=== PATIENT | male | born 1965 | race Caucasian/White ===

== ENCOUNTER 2021-01-25 08:41 | Day surgery (SDC) | payer OTHER ==
[2021-01-23 11:07] VITALS: BMI 33.1
[~2021-01-25 08:41] MED LIST: LACTATED RINGERS 1,000 ML IV SCH; LIDOCAINE 1% (10MG/ML) FOR IV START INTRADERMA PRN
[2021-01-25 09:22] VITALS: TEMP 98.7
[2021-01-25] MEDS ORDERED: LACTATED RINGERS 1,000 ML IV ONE ×2 (09:42)
[2021-01-25] MEDS ORDERED: PROPOFOL 10 MG/ML 20 ML VIAL IV ONE (10:04)
--- NOTE | 2021-01-25 10:16 | P.GSHP ---
History of Present Illness H&P Date: 01/25/21 Chief Complaint: Screening colonoscopy This a 55-year-old male presents today for screening colonoscopy. Patient denies any significant GI complaints. Past Medical History Past Medical History: Hypertension History of Any Multi-Drug Resistant Organisms: None Reported Past Surgical History: Orthopedic Surgery Additional Past Surgical History / Comment(s): rt rotator cuff. dislocated and fx lt ankle with titanium plate and 14 screws Past Anesthesia/Blood Transfusion Reactions: No Reported Reaction Smoking Status: Former smoker Medications and Allergies Home Medications Medication Instructions Recorded Confirmed Type Multivitamins, Thera [Multivitamin 1 tab PO DAILY 01/23/21 01/25/21 History (formulary)] lisinopriL [Zestril] 2.5 mg PO DAILY 01/23/21 01/25/21 History Allergies Allergy/AdvReac Type Severity Reaction Status Date / Time No Known Allergies Allergy Verified 01/23/21 11:01 Surgical - Exam Vital Signs Temp Pulse Resp BP Pulse Ox 98.7 F 78 16 163/96 98 01/25/21 09:20 01/25/21 09:20 01/25/21 09:20 01/25/21 09:20 01/25/21 09:20 - General well developed, well nourished, no distress - Eyes PERRL - ENT normal pinna - Neck no masses - Respiratory normal expansion - Cardiovascular Rhythm: regular - Abdomen Abdomen: soft, non tender Assessment and Plan Assessment: We'll perform screening colonoscopy.
--- NOTE | 2021-01-25 10:17 | P.OP ---
Date of Procedure: 01/25/21 Preoperative Diagnosis: Screening colonoscopy Postoperative Diagnosis: Diverticulosis Procedure(s) Performed: Colonoscopy Anesthesia: MAC Surgeon: Olman Bates Pathology: none sent Condition: stable Disposition: PACU Description of Procedure: The patient's placed on the endoscopy table in the lateral position. He received IV sedation. Digital rectal exam was performed which revealed no abnormality. The colonoscope was then placed patient anus passed throughout the entire colon. The ileocecal valve was visualized. The cecum, ascending and transverse colon normal. In the descending; there is extensive diverticular changes. There is no evidence of diverticulitis. The scope was brought back the rectum and this appeared normal. Scope withdrawn for patient.
[2021-01-25 10:36] VITALS: BP 124/82; PULSE 71; RESP 18
== END 2021-01-25 10:52 | disposition home or self-care (01) ==
LOC: ORWHC2ENDO 08:41
PROVIDERS: ATTEND Surgery
DX: Z12.11 Encounter for screening for malignant neoplasm of colon (principal); K57.30 Diverticulosis of large intestine without perforation or abscess without bleeding; I10 Essential (primary) hypertension; Z87.891 Personal history of nicotine dependence; Z98.890 Other specified postprocedural states; Z79.899 Other long term (current) drug therapy
CPT/HCPCS: J2704; G0121

== ENCOUNTER 2021-12-19 12:33 | Inpatient (IN) | payer BC, OTHER ==
[2021-12-19] MEDS ORDERED: HEPARIN SODIUM 1,000 UN/ML (10ML VL) IV ONE (13:01)
[2021-12-19] MEDS ORDERED: SODIUM CHLORIDE 0.9% 1,000 ML IV STA (13:01)
[2021-12-19] MEDS ORDERED: DILTIAZEM DRIP BOLUS FROM BAG 1 MG SOLN IV ONE (13:01)
[2021-12-19] MEDS ORDERED: HEPARIN SOD,PORK IN 0.45% NACL 25,000 UNIT in 0.45% NACL 1 250ML.BAG IV SCH (13:15)
[2021-12-19 13:28] LABS: Partial Thromboplastin Time 24.5 sec (22.0-30.0); Prothrombin Time 10.7 sec (9.0-12.0)
[2021-12-19 13:29] LABS: ALT 35 U/L (4-49); AST 38 U/L (17-59); African American GFR (CKD) >90 (>60 ml/min/1.73 sqM); Albumin 4.6 g/dL (3.5-5.0); Alkaline Phosphatase 66 U/L (38-126); Anion Gap 15 mmol/L; Blood Urea Nitrogen 16 mg/dL (9-20); Calcium 9.3 mg/dL (8.4-10.2); Carbon Dioxide 21 mmol/L (22-30); Chloride 102 mmol/L (98-107); Glucose 87 mg/dL (74-99); Magnesium 1.9 mg/dL (1.6-2.3); Non-African American GFR(CKD) >90 (>60 ml/min/1.73 sqM); Potassium 4.3 mmol/L (3.5-5.1); Sodium 138 mmol/L (137-145); Total Bilirubin 0.6 mg/dL (0.2-1.3)
[2021-12-19] MEDS: DILTIAZEM 125 MG in SODIUM CHLORIDE 0.9% 100 ML IV SCH (13:34)
--- NOTE | 2021-12-19 13:41 | ED ---
Arrhythmia/Palpitations HPI - General Chief Complaint: Arrhythmia/Palpitations Stated Complaint: abnormal EKG Time Seen by Provider: 12/19/21 12:50 Source: patient, RN notes reviewed Mode of arrival: ambulatory Limitations: no limitations - History of Present Illness Initial Comments: 56-year-old male with a benign past medical history who states he was sent here from his doctor's office today he's been having for the past several months decreased exercise tolerance with shortness of breath with exertion. He also had a cough with some phlegm today which is why he went to [employer] he had a rapid heart rate and was sent here for evaluation. He has no prior history of atrial flutter or fibrillation. No history of any cardiac disease that he is aware of. He does have a history of hypertension but no other complaints of any other problems at this time MD Complaint: rapid heart beat - Related Data Home Medications Medication Instructions Recorded Confirmed Multivitamins, Thera [Multivitamin 1 tab PO DAILY 01/23/21 01/25/21 (formulary)] lisinopriL [Zestril] 2.5 mg PO DAILY 01/23/21 01/25/21 Allergies Allergy/AdvReac Type Severity Reaction Status Date / Time No Known Allergies Allergy Verified 12/19/21 12:41 Review of Systems ROS Statement: Those systems with pertinent positive or pertinent negative responses have been documented in the HPI. ROS Other: All systems not noted in ROS Statement are negative. Past Medical History Past Medical History: Hypertension History of Any Multi-Drug Resistant Organisms: None Reported Past Surgical History: Orthopedic Surgery Additional Past Surgical History / Comment(s): rt rotator cuff. dislocated and fx lt ankle with titanium plate and 14 screws Past Anesthesia/Blood Transfusion Reactions: No Reported Reaction Past Psychological History: No Psychological Hx Reported Smoking Status: Former smoker Past Alcohol Use History: Occasional Past Drug Use History: None Reported General Exam - General Exam Comments Initial Comments: This is a well-developed well-nourished awake alert oriented 4 male Limitations: no limitations General appearance: alert, in no apparent distress Head exam: Present: atraumatic, normocephalic, normal inspection Eye exam: Present: normal appearance, PERRL, EOMI. Absent: scleral icterus, conjunctival injection, periorbital swelling ENT exam: Present: normal exam, mucous membranes moist Neck exam: Present: normal inspection, full ROM, other (No stridor JVD or bruits). Absent: tenderness, meningismus, lymphadenopathy Respiratory exam: Present: normal lung sounds bilaterally. Absent: respiratory distress, wheezes, rales, rhonchi, stridor Cardiovascular Exam: Present: tachycardia. Absent: systolic murmur, diastolic murmur, rubs, gallop, clicks GI/Abdominal exam: Present: soft, normal bowel sounds. Absent: distended, tenderness, guarding, rebound, rigid Extremities exam: Present: normal inspection, full ROM, normal capillary refill. Absent: tenderness, pedal edema, joint swelling, calf tenderness Back exam: Present: normal inspection Neurological exam: Present: alert, oriented X3, CN II-XII intact Psychiatric exam: Present: normal affect, normal mood Skin exam: Present: warm, dry, intact, normal color. Absent: rash Course Vital Signs 12/19/21 12:37 Temperature 98 F Pulse Rate 147 H Respiratory 20 Rate Blood Pressure 162/106 O2 Sat by Pulse 98 Oximetry - Reevaluation(s) Reevaluation #1: 12/19/21 15:05 Patient did get some initial response with Cardizem but then the heart rate started creeping upward. Patient will be re-bolused and increased Cardizem rate per hour. EKG Findings - EKG Results: EKG: interpreted by YAYA (EKG shows a atrial flutter rate of 145 QRS duration 88 QT/QTC 153/[address] configuration.) Medical Decision Making - Medical Decision Making I did discuss findings with the patient also with Dr. wells patient be admitted with cardiology consultation new-onset atrial flutter - Lab Data Result diagrams: 12/19/21 12:45 12/19/21 12:45 Lab Results 12/19/21 12/19/21 12/19/21 Range/Units 12:45 12:45 12:45 WBC 7.8 (3.8-10.6) k/uL RBC 5.22 (4.30-5.90) m/uL Hgb 16.4 (13.0-17.5) gm/dL Hct 49.9 (39.0-53.0) % MCV 95.5 (80.0-100.0) fL MCH 31.4 (25.0-35.0) pg MCHC 32.9 (31.0-37.0) g/dL RDW 12.3 (11.5-15.5) % Plt Count 205 (150-450) k/uL MPV 8.8 Neutrophils % (Manual) 67 % Lymphocytes % (Manual) 18 % Monocytes % (Manual) 15 % Neutrophils # (Manual) 5.23 (1.3-7.7) k/uL Lymphocytes # (Manual) 1.40 (1.0-4.8) k/uL Monocytes # (Manual) 1.17 H (0-1.0) k/uL Nucleated RBCs 0 (0-0) /100 WBC Manual Slide Review Performed Anisocytosis (manual) Present PT 10.7 (9.0-12.0) sec INR 1.0 (<1.2) APTT 24.5 (22.0-30.0) sec Sodium 138 (137-145) mmol/L Potassium 4.3 (3.5-5.1) mmol/L Chloride 102 (98-107) mmol/L Carbon Dioxide 21 L (22-30) mmol/L Anion Gap 15 mmol/L BUN 16 (9-20) mg/dL Creatinine 0.91 (0.66-1.25) mg/dL Est GFR (CKD-EPI)AfAm >90 (>60 ml/min/1.73 sqM) Est GFR (CKD-EPI)NonAf >90 (>60 ml/min/1.73 sqM) Glucose 87 (74-99) mg/dL Calcium 9.3 (8.4-10.2) mg/dL Magnesium 1.9 (1.6-2.3) mg/dL Total Bilirubin 0.6 (0.2-1.3) mg/dL AST 38 (17-59) U/L ALT 35 (4-49) U/L Alkaline Phosphatase 66 (38-126) U/L Troponin I (0.000-0.034) ng/mL Total Protein 8.0 (6.3-8.2) g/dL Albumin 4.6 (3.5-5.0) g/dL TSH 1.530 (0.465-4.680) mIU/L 12/19/21 Range/Units 12:45 WBC (3.8-10.6) k/uL RBC (4.30-5.90) m/uL Hgb (13.0-17.5) gm/dL Hct (39.0-53.0) % MCV (80.0-100.0) fL MCH (25.0-35.0) pg MCHC (31.0-37.0) g/dL RDW (11.5-15.5) % Plt Count (150-450) k/uL MPV Neutrophils % (Manual) % Lymphocytes % (Manual) % Monocytes % (Manual) % Neutrophils # (Manual) (1.3-7.7) k/uL Lymphocytes # (Manual) (1.0-4.8) k/uL Monocytes # (Manual) (0-1.0) k/uL Nucleated RBCs (0-0) /100 WBC Manual Slide Review Anisocytosis (manual) PT (9.0-12.0) sec INR (<1.2) APTT (22.0-30.0) sec Sodium (137-145) mmol/L Potassium (3.5-5.1) mmol/L Chloride (98-107) mmol/L Carbon Dioxide (22-30) mmol/L Anion Gap mmol/L BUN (9-20) mg/dL Creatinine (0.66-1.25) mg/dL Est GFR (CKD-EPI)AfAm (>60 ml/min/1.73 sqM) Est GFR (CKD-EPI)NonAf (>60 ml/min/1.73 sqM) Glucose (74-99) mg/dL Calcium (8.4-10.2) mg/dL Magnesium (1.6-2.3) mg/dL Total Bilirubin (0.2-1.3) mg/dL AST (17-59) U/L ALT (4-49) U/L Alkaline Phosphatase (38-126) U/L Troponin I <0.012 (0.000-0.034) ng/mL Total Protein (6.3-8.2) g/dL Albumin (3.5-5.0) g/dL TSH (0.465-4.680) mIU/L - Radiology Data Radiology results: report reviewed (Imaging reviewed as well as reports.), image reviewed Critical Care Time Critical Care Time: Yes Total Critical Care Time: 31 Critical Care Time: Critical care time includes initial history physical labs x-rays reevaluation with the patient discussed with the main physician admission orders neck mentation the above Disposition Clinical Impression: Atrial flutter, Tachycardia Disposition: ADMITTED IP TO THIS [facility] Condition: Stable Referrals: Cecily Shelton MD [Primary Care Provider] - 1-2 days Decision Date: 12/19/21 Decision Time: 15:06
[2021-12-19 13:44] LABS: HCT 49.9 % (39.0-53.0); HGB 16.4 gm/dL (13.0-17.5); MCH 31.4 pg (25.0-35.0); MCHC 32.9 g/dL (31.0-37.0); MCV 95.5 fL (80.0-100.0); Mean Platelet Volume 8.8; Platelet Count 205 k/uL (150-450); RBC 5.22 m/uL (4.30-5.90); RDW 12.3 % (11.5-15.5); WBC 7.8 k/uL (3.8-10.6)
--- NOTE | 2021-12-19 14:24 | XR ---
EXAMINATION TYPE: XR chest 2V DATE OF EXAM: 12/19/2021 COMPARISON: NONE HISTORY: Shortness of breath TECHNIQUE: Frontal and lateral views of the chest are obtained. FINDINGS: Scattered senescent parenchymal changes noted. Hyperinflation compatible with COPD. No evidence for infiltrate. No evidence for atelectasis. Heart size is stable. Mediastinal structures are stable and grossly unremarkable. No evidence for hilar prominence. Degenerative changes dorsal spine. IMPRESSION: 1. No evidence for acute pulmonary disease.
[2021-12-19 15:01] LABS: Anisocytosis (M) Present; Monocytes # (M) 1.17 k/uL (0-1.0); Neutrophils # (M) 5.23 k/uL (1.3-7.7); Neutrophils % (M) 67 %; Nucleated Red Blood Cells 0 /100 WBC (0-0); Total Cells Counted 100
[2021-12-19] MEDS ORDERED: NALOXONE 0.4 MG/ML 1 ML VIAL IV PRN (15:07)
[2021-12-19] MEDS ORDERED: HEPARIN SODIUM 1,000 UN/ML (10ML VL) IV PRN (20:29)
--- NOTE | 2021-12-19 21:21 | P.HPIM ---
History of Present Illness This is a pleasant 56 years old male with past medical history of hypertension. Patient presents because of shortness of breath and dyspnea, patient was getting up in the middle of night feeling short of breath. Especially over the last 2 nights. Also has been complaining of from cough and yellow phlegm but no chest pain. However patient feels generally weak. His PCP is Richard Todd He denies smoking, alcohol occasionally. No illicit drugs. He denies vomiting diarrhea or abdominal pain, no dysuria, no headache or dizziness or weakness or numbness Review of Systems Review of systems CONSTITUTIONAL: No fever, no malaise, no fatigue. HEENT: No recent visual problems or hearing problems. Denied any sore throat. CARDIOVASCULAR: No orthopnea, PND, no palpitations, no syncope. PULMONARY: No shortness of breath, no cough, no hemoptysis. GASTROINTESTINAL: No diarrhea, no nausea, no vomiting, no abdominal pain. Normoactive bowel sounds. NEUROLOGICAL: No headaches, no weakness, no numbness. HEMATOLOGICAL: Denies any bleeding or petechiae. GENITOURINARY: Denies any burning micturition, frequency, or urgency. MUSCULOSKELETAL/RHEUMATOLOGICAL: Denies any joint pain, swelling, or any muscle pain. ENDOCRINE: Denies any polyuria or polydipsia. Past Medical History Past Medical History: Hypertension History of Any Multi-Drug Resistant Organisms: None Reported Past Surgical History: Orthopedic Surgery Additional Past Surgical History / Comment(s): rt rotator cuff. dislocated and fx lt ankle with titanium plate and 14 screws Past Anesthesia/Blood Transfusion Reactions: No Reported Reaction Past Psychological History: No Psychological Hx Reported Smoking Status: Former smoker Past Alcohol Use History: Occasional Past Drug Use History: None Reported Medications and Allergies Home Medications Medication Instructions Recorded Confirmed Type lisinopriL [Zestril] 2.5 mg PO DAILY 01/23/21 12/19/21 History tadalafiL 5 mg PO DAILY PRN 12/19/21 12/19/21 History Allergies Allergy/AdvReac Type Severity Reaction Status Date / Time No Known Allergies Allergy Verified 12/19/21 15:12 Physical Exam Vitals: Vital Signs Temp Pulse Resp BP Pulse Ox 12/19/21 16:13 147 H 18 12/19/21 12:37 98 F 147 H 20 162/106 98 Intake and Output 12/19/21 12/19/21 12/19/21 06:59 14:59 22:59 Intake Total 7.75 Balance 7.75 Intake: Intake, IV Titration 7.75 Amount Diltiazem 125 mg In 7.75 Sodium Chloride 0.9% 100 ml @ 5 MG/HR 5 mls/hr IV .Q24H [facility] Rx#:[id number] Other: Weight 124.738 kg GENERAL: The patient is alert and oriented x3, not in any acute distress. Well developed, well nourished. HEENT: Pupils are round and equally reacting to light. EOMI. No scleral icterus. No conjunctival pallor. Normocephalic, atraumatic. No pharyngeal erythema. No thyromegaly. CARDIOVASCULAR: S1 and S2 present. No murmurs, rubs, or gallops. PULMONARY: Chest is clear to auscultation, no wheezing or crackles. ABDOMEN: Soft, nontender, nondistended, normoactive bowel sounds. No palpable organomegaly. MUSCULOSKELETAL: No joint swelling or deformity. EXTREMITIES: No cyanosis, clubbing, or pedal edema. NEUROLOGICAL: Gross neurological examination did not reveal any focal deficits. SKIN: No rashes. no petechiae. Results CBC & Chem 7: 12/19/21 12:45 12/19/21 12:45 Labs: Abnormal Lab Results - Last 24 Hours (Table) 12/19/21 12/19/21 Range/Units 12:45 12:45 Monocytes # (Manual) 1.17 H (0-1.0) k/uL Carbon Dioxide 21 L (22-30) mmol/L Assessment and Plan Assessment: Atrial flutter with RVR, new onset Hypertension Generalized weakness Plan: This is a pleasant 56 years old male who presents with a flutter Continue with heparin drip Continue with Cardizem drip Cardiology consult Labs and medication were reviewed.. Continue same treatment. Continue with symptomatic treatment. Resume home medication. Monitor lytes and vitals. DVT and GI prophylaxis. Further recommendations as per clinical course of the patient DVT prophylaxis: heparin GI Prophylaxis: Pepcid
[2021-12-19] MEDS ORDERED: METOPROLOL TARTRATE 25 MG TAB PO SCH (21:45)
[2021-12-20] MEDS: DILTIAZEM 125 MG in SODIUM CHLORIDE 0.9% 100 ML IV SCH (04:45)
--- NOTE | 2021-12-20 08:24 | P.CRDCN ---
History of Present Illness Consult date: 12/20/21 History of present illness: History of Present Illness: The patient is a 56-year-old male with a history of hypertension who for the last month has been having episodes of fatigue and dyspnea on and off, not associated with any other symptoms, he was seen by his primary care physician yesterday and noted to be tachycardic and in atrial flutter. The patient does not feel the palpitations, he has no dizziness or syncope. He denies any chest discomfort. He has no prior history of cardiac disease. He does exercise on a regular basis and goes to the gym and has felt a lack of energy at times. He has no recent fever or cough. He has no PND, orthopnea or peripheral edema. He has a history of snoring and apnea but has not been diagnosed with obstructive sleep apnea. He stopped smoking over 10 years ago, he drinks about 2 beers a day. He has a history of hypertension, nondiabetic, his lipid profile is not available. His CHADS2-VASC2 score is 1. He has a cough, dry, probably CHENTE inhibitor cough Medications: Lisinopril 2.5 milligrams daily Review of Systems: Respiratory: [No history of asthma, he has a dry cough.] GI: [No nausea or vomiting . No history of peptic ulcer disease. No recent GI bleed.] : [No hematuria or dysuria.] Nervous System: [No stroke or seizure.] Physical Examination: [56-year-old male, alert oriented no apparent distress] ,Blood pressure[ 106/60 ], Heart rate [ in the 100s] Head: [Normocephalic.] Eyes: [Sclerae nonicteric.] Neck: [Good carotid upstroke, no bruit, no jugular venous distention.] Lungs: [Clear to auscultation.] Heart: [Irregular rate and rhythm, S1-S2, no S3, no rub. No murmur.] Abdomen: [Soft nontender, positive bowel sounds no organomegaly.] Extremities: [No edema, intact distal pulses.] Labs: [Troponin less than 0.012, hemoglobin 16.4, potassium 4.3, BUN 16, creatinine 0.91, TSH 1.53] EKG: [ Atrial flutter with rapid ventricle response and nonspecific ST-T wave changes] Impression: 1. [ Typical atrial flutter, unknown duration. It is unclear if the patient was having paroxysmal atrial flutter associated with the change in his symptoms, his score is 1] 2. [ History of hypertension] 3. [ Probable obstructive sleep apnea] 4. [ Cough probably CHENTE inhibitor cough] Plan: 1. [ Stop IV Cardizem] 2. [ Increase beta carlos] 3. [ Start oral anticoagulation] 4. [ Obtain an echocardiogram with Doppler] 5. [ The patient will require a sleep study as an outpatient, I discussed with him as well the importance of alcohol cessation 6. If he persists in atrial flutter with rapid ventricle response consider JULIETTE guided cardioversion, the risks and the complications were discussed with the patient 7. Thank you for this consult we will follow with you] Past Medical History Past Medical History: Hypertension History of Any Multi-Drug Resistant Organisms: None Reported Past Surgical History: Orthopedic Surgery Additional Past Surgical History / Comment(s): rt rotator cuff. dislocated and fx lt ankle with titanium plate and 14 screws Past Anesthesia/Blood Transfusion Reactions: No Reported Reaction Past Psychological History: No Psychological Hx Reported Smoking Status: Former smoker Past Alcohol Use History: Occasional Past Drug Use History: None Reported Medications and Allergies Home Medications Medication Instructions Recorded Confirmed Type lisinopriL [Zestril] 2.5 mg PO DAILY 01/23/21 12/19/21 History tadalafiL 5 mg PO DAILY PRN 12/19/21 12/19/21 History Allergies Allergy/AdvReac Type Severity Reaction Status Date / Time No Known Allergies Allergy Verified 12/19/21 15:12 Physical Exam Vitals: Vital Signs Temp Pulse Pulse Pulse Resp BP BP 12/20/21 06:57 100 106/63 12/20/21 03:30 98.1 F 92 18 98/66 12/20/21 00:35 98.7 F 136 H 16 100/71 12/19/21 22:12 141 H 114/72 12/19/21 20:56 144 H 132/83 12/19/21 19:45 97.8 F 144 H 18 129/85 12/19/21 18:30 97.8 F 147 H 18 130/87 12/19/21 16:43 149 H 18 117/77 12/19/21 16:13 147 H 18 12/19/21 16:00 97.9 F 124 H 16 133/70 12/19/21 15:59 98 F 124 H 15 130/87 12/19/21 12:37 98 F 147 H 20 162/106 Pulse Ox 12/20/21 06:57 12/20/21 03:30 94 L 12/20/21 00:35 95 12/19/21 22:12 12/19/21 20:56 12/19/21 19:45 97 12/19/21 18:30 96 12/19/21 16:43 94 L 12/19/21 16:13 12/19/21 16:00 94 L 12/19/21 15:59 96 12/19/21 12:37 98 Intake and Output 12/19/21 12/20/21 12/20/21 22:59 06:59 14:59 Intake Total 376.583 158.731 Balance 376.583 158.731 Intake: Intake, IV Titration 146.583 158.731 Amount Diltiazem 125 mg In 73.75 51.25 Sodium Chloride 0.9% 100 ml @ 5 MG/HR 5 mls/hr IV .Q24H [facility] Rx#:[id number] Heparin Sod,Pork in 0.45% 72.833 107.481 NaCl 25,000 unit In 0.45 % NaCl 1 250ml.bag @ 8. 0168 UNITS/KG/HR 10 mls/ hr IV .Q24H [facility] Rx#: [id number] Oral 230 Other: Voiding Method Toilet Toilet # Voids 3 Weight 124.738 kg Results 12/19/21 12:45 12/19/21 12:45 Cardiac Enzymes 12/19/21 12/19/21 12/19/21 Range/Units 12:45 12:45 18:22 AST 38 (17-59) U/L Troponin I <0.012 <0.012 (0.000-0.034) ng/mL 12/19/21 Range/Units 20:29 AST (17-59) U/L Troponin I <0.012 (0.000-0.034) ng/mL Coagulation 12/19/21 12/19/21 12/20/21 Range/Units 12:45 19:05 03:49 PT 10.7 (9.0-12.0) sec APTT 24.5 28.2 68.7 H (22.0-30.0) sec CBC 12/19/21 Range/Units 12:45 WBC 7.8 (3.8-10.6) k/uL RBC 5.22 (4.30-5.90) m/uL Hgb 16.4 (13.0-17.5) gm/dL Hct 49.9 (39.0-53.0) % Plt Count 205 (150-450) k/uL Comprehensive Metabolic Panel 12/19/21 Range/Units 12:45 Sodium 138 (137-145) mmol/L Potassium 4.3 (3.5-5.1) mmol/L Chloride 102 (98-107) mmol/L Carbon Dioxide 21 L (22-30) mmol/L BUN 16 (9-20) mg/dL Creatinine 0.91 (0.66-1.25) mg/dL Glucose 87 (74-99) mg/dL Calcium 9.3 (8.4-10.2) mg/dL AST 38 (17-59) U/L ALT 35 (4-49) U/L Alkaline Phosphatase 66 (38-126) U/L Total Protein 8.0 (6.3-8.2) g/dL Albumin 4.6 (3.5-5.0) g/dL Current Medications Generic Name Dose Route Start Last Admin Trade Name Freq PRN Reason Stop Dose Admin Naloxone HCl 0.2 mg 12/19/21 15:07 Naloxone 0.4 Mg/Ml 1 Ml Vial IV Q2M PRN Opioid Reversal Intake and Output 12/19/21 12/20/21 12/20/21 22:59 06:59 14:59 Intake Total 376.583 158.731 Balance 376.583 158.731 Intake: Intake, IV Titration 146.583 158.731 Amount Diltiazem 125 mg In 73.75 51.25 Sodium Chloride 0.9% 100 ml @ 5 MG/HR 5 mls/hr IV .Q24H [facility] Rx#:[id number] Heparin Sod,Pork in 0.45% 72.833 107.481 NaCl 25,000 unit In 0.45 % NaCl 1 250ml.bag @ 8. 0168 UNITS/KG/HR 10 mls/ hr IV .Q24H [facility] Rx#: [id number] Oral 230 Other: Voiding Method Toilet Toilet # Voids 3 Weight 124.738 kg 12/19/21 12:45 12/19/21 12:45
[2021-12-20] MEDS: APIXABAN 5 MG TAB PO SCH ×2 (09:14→22:32)
[2021-12-20] MEDS: METOPROLOL TARTRATE 50 MG TAB PO SCH ×2 (09:15→22:32)
--- NOTE | 2021-12-20 12:22 | P.PN ---
Subjective This is a pleasant 56 years old male with past medical history of hypertension. Patient presents because of shortness of breath and dyspnea, patient was getting up in the middle of night feeling short of breath. Especially over the last 2 nights. Also has been complaining of from cough and yellow phlegm but no chest pain. However patient feels generally weak. His PCP is Richard Todd He denies smoking, alcohol occasionally. No illicit drugs. He denies vomiting diarrhea or abdominal pain, no dysuria, no headache or dizziness or weakness or numbness 12/20/2021 Patient's symptoms improved, no chest pain or dyspnea. His generalized weakness is also improving. He denies any GI or urinary complaints, no headache or weakness or numbness or d izziness. His heart rate is been controlled with metoprolol 50 mg twice a day and amiodarone 400 mg twice a day per cardiology team also he was started on liquids 5 mg, discussed with the staff to find the co-pay. His heart rate is now normal. Risk and benefits of anticoagulation explained for the patient extensively and he verbalized understanding and acceptance. Possible discharge in 24 hours if he keeps improving and stable Objective - Vital Signs Vital signs: Vital Signs Temp 98.2 F 12/20/21 09:00 Pulse 64 12/20/21 09:00 Resp 16 12/20/21 09:00 BP 118/72 12/20/21 09:00 Pulse Ox 97 12/20/21 09:00 FiO2 Intake & Output 12/19/21 12/20/21 12/20/21 18:59 06:59 18:59 Intake Total 237.75 297.564 Balance 237.75 297.564 Weight 124.738 kg Intake: Intake, IV Titration 7.75 297.564 Amount Diltiazem 125 mg In 7.75 117.25 Sodium Chloride 0.9% 100 ml @ 5 MG/HR 5 mls/hr IV .Q24H [facility] Rx#:[id number] Heparin Sod,Pork in 0.45% 180.314 NaCl 25,000 unit In 0.45 % NaCl 1 250ml.bag @ 8. 0168 UNITS/KG/HR 10 mls/ hr IV .Q24H [facility] Rx#: [id number] Oral 230 Other: Voiding Method Toilet # Voids 3 - Exam GENERAL: The patient is alert and oriented x3, not in any acute distress. Well developed, well nourished. HEENT: Pupils are round and equally reacting to light. EOMI. No scleral icterus. No conjunctival pallor. Normocephalic, atraumatic. No pharyngeal erythema. No thyromegaly. CARDIOVASCULAR: S1 and S2 present. No murmurs, rubs, or gallops. PULMONARY: Chest is clear to auscultation, no wheezing or crackles. ABDOMEN: Soft, nontender, nondistended, normoactive bowel sounds. No palpable organomegaly. MUSCULOSKELETAL: No joint swelling or deformity. EXTREMITIES: No cyanosis, clubbing, or pedal edema. NEUROLOGICAL: Gross neurological examination did not reveal any focal deficits. SKIN: No rashes. no petechiae. - Labs CBC & Chem 7: 12/19/21 12:45 12/19/21 12:45 Labs: Abnormal Lab Results - Last 24 Hours (Table) 12/19/21 12/19/21 12/20/21 Range/Units 12:45 12:45 03:49 Monocytes # (Manual) 1.17 H (0-1.0) k/uL APTT 68.7 H (22.0-30.0) sec Carbon Dioxide 21 L (22-30) mmol/L Assessment and Plan Assessment: Atrial flutter with RVR, new onset Hypertension Generalized weakness Plan: This is a pleasant 56 years old male who presents with a atrial fibrillation and RVR Continue with the Eliquis, find co-pay Continue with Dipti rousseau Cardiology consult is appreciated Labs and medication were reviewed.. Continue same treatment. Continue with symptomatic treatment. Resume home medication. Monitor lytes and vitals. DVT and GI prophylaxis. Further recommendations as per clinical course of the patient DVT prophylaxis: Eliquis, GI Prophylaxis: Pepcid
[2021-12-20] MEDS: SPIRONOLACTONE 25 MG TAB PO SCH (12:38)
[2021-12-20] MEDS: AMIODARONE 200 MG TAB PO SCH ×2 (12:39→22:31)
[2021-12-20 13:07] LABS: African American GFR (CKD) >90 (>60 ml/min/1.73 sqM); Anion Gap 9 mmol/L; Blood Urea Nitrogen 13 mg/dL (9-20); Calcium 9.3 mg/dL (8.4-10.2); Carbon Dioxide 22 mmol/L (22-30); Chloride 105 mmol/L (98-107); Glucose 105 mg/dL (74-99); Magnesium 1.8 mg/dL (1.6-2.3); Non-African American GFR(CKD) >90 (>60 ml/min/1.73 sqM); Potassium 4.7 mmol/L (3.5-5.1); Sodium 136 mmol/L (137-145)
[2021-12-20 13:10] LABS: Basophils # (A) 0.1 k/uL (0-0.2); Basophils % (A) 1 %; Eosinophils # (A) 0.2 k/uL (0-0.7); Eosinophils % (A) 3 %; HCT 49.2 % (39.0-53.0); HGB 16.4 gm/dL (13.0-17.5); Lymphocytes # (A) 2.4 k/uL (1.0-4.8); Lymphocytes % (A) 39 %; MCH 32.6 pg (25.0-35.0); MCHC 33.4 g/dL (31.0-37.0); MCV 97.8 fL (80.0-100.0); Mean Platelet Volume 8.6; Monocytes # (A) 0.4 k/uL (0-1.0); Monocytes % (A) 7 %; Neutrophils # (A) 2.9 k/uL (1.3-7.7); Neutrophils % (A) 47 %; Platelet Count 247 k/uL (150-450); RBC 5.03 m/uL (4.30-5.90); RDW 12.5 % (11.5-15.5); WBC 6.1 k/uL (3.8-10.6)
[2021-12-20] MEDS ORDERED: METOPROLOL TARTRATE 25 MG TAB PO STA (14:54)
--- NOTE | 2021-12-20 17:23 | CA ---
Transthoracic Echo Report Name: Reilly Craig Age: 56 Gender: M : 1965 Exam Date: 12/20/2021 09:46 Exam Location: [facility] Ht (in): 62 Wt (lb): 275 Ordering Physician: Keila Morris MD ([id number]) Attending/Referring Phys: Rn On Site Bere Lujan RDCS Procedure CPT: Indications: atrial flutter Cardiac Hx: Technical Quality: Technically difficult study Contrast 1: Lumason Total Dose (mL): 3 Contrast 2: Total Dose (mL): MEASUREMENTS (Male / Female) Normal Values 2D ECHO LV Diastolic Diameter PLAX 6.0 cm 4.2 - 5.9 / 3.9 - 5.3 cm LV Systolic Diameter PLAX 5.7 cm IVS Diastolic Thickness 1.3 cm 0.6 - 1.0 / 0.6 - 0.9 cm LVPW Diastolic Thickness 2.2 cm 0.6 - 1.0 / 0.6 - 0.9 cm LV Relative Wall Thickness 0.6 RV Internal Dim ED PLAX 3.6 cm LA Systolic Diameter LX 4.5 cm 3.0 - 4.0 / 2.7 - 3.8 cm LA Volume 72.6 cm??? 18 - 58 / 22 - 52 cm??? M-MODE Aortic Root Diameter MM 3.7 cm LA Systolic Diameter MM 4.1 cm LA Ao Ratio MM 1.1 MV E Point Septal Separation 0.9 cm AV Cusp Separation MM 2.3 cm DOPPLER TR Peak Velocity 265.2 cm/s TR Peak Gradient 28.1 mmHg Right Ventricular Systolic Press 31.7 mmHg FINDINGS Left Ventricle Left ventricular ejection fraction is estimated at 30-35 %. Moderately reduced global left ventricular systolic function. Right Ventricle Normal right ventricular size and function. Right ventricular systolic pressure within normal limits. Right Atrium Normal right atrial size. Left Atrium Mildly increased left atrial diameter. Moderately increased left atrial volume. Mildly increased left atrial area. Mitral Valve Structurally normal mitral valve. Mild mitral regurgitation. Aortic Valve Trileaflet aortic valve. Tricuspid Valve Structurally normal tricuspid valve. Mild tricuspid regurgitation. Pulmonic Valve Structurally normal pulmonic valve. Pericardium Trace of pericardial effusion. Aorta Normal size aortic root and proximal ascending aorta. CONCLUSIONS Severe LV systolic dysfunction with an ejection fraction of 30-35% Moderate left atrial enlargement Mild mitral regurgitation Previewed by: Dr. Alin Kaur MD (Electronically Signed) Final Date: 20 December 2021 17:23
[2021-12-21] MEDS: METOPROLOL TARTRATE 50 MG TAB PO SCH (08:38)
[2021-12-21] MEDS: SPIRONOLACTONE 25 MG TAB PO SCH (08:38)
[2021-12-21] MEDS: AMIODARONE 200 MG TAB PO SCH ×2 (08:38→20:45)
[2021-12-21] MEDS: APIXABAN 5 MG TAB PO SCH ×2 (08:39→20:45)
[2021-12-21 09:39] LABS: African American GFR (CKD) >90 (>60 ml/min/1.73 sqM); Anion Gap 12 mmol/L; Blood Urea Nitrogen 18 mg/dL (9-20); Calcium 9.5 mg/dL (8.4-10.2); Carbon Dioxide 22 mmol/L (22-30); Chloride 104 mmol/L (98-107); Glucose 110 mg/dL (74-99); Non-African American GFR(CKD) 82 (>60 ml/min/1.73 sqM); Potassium 4.4 mmol/L (3.5-5.1); Sodium 138 mmol/L (137-145)
[2021-12-21] MEDS ORDERED: LACTATED RINGERS 1,000 ML IV ONE ×2 (10:05)
[2021-12-21] MEDS ORDERED: LIDOCAINE 2% INJ 20 MG/ML (2 ML VIAL) ONE (10:08)
[2021-12-21] MEDS ORDERED: PROPOFOL 10 MG/ML 20 ML VIAL IV ONE (10:08)
--- NOTE | 2021-12-21 10:33 | P.PN ---
Subjective Progress Note Date: 12/21/21 PROGRESS NOTE The patient is a 56-year-old male with a known history of hypertension who presented with progressive dyspnea was noted to be in atrial flutter with rapid ventricular rate. Anticoagulation was initiated. His echocardiogram showed severely impaired systolic function and his ventricular rate remains rapid with 2 to one conduction. He's feeling better overall. He denies any chest discomfort, dizziness or palpitations. He denies any nausea. His echocardiogram showed an ejection fraction of 3035% with mild mitral and tricuspid regurgitation Medications: Amiodarone 400 milligrams twice a day, metoprolol 50 mg twice a day,Eliquis 5 mg twice a day, Aldactone 25 mg daily EXAMINATION: Blood pressure 122/102, heart rate 137 LUNGS: Clear to auscultation HEART: Tachycardic Regular rate and rhythm, S1, S2. No S3. systolic murmur at the base ABDOMEN: Soft, nontender, no organomegaly EXTREMETIES: No edema LAB: Potassium 4.4, BUN 18, creatinine 1.03 IMPRESSION: 1. Atrial flutter with rapid ventricular rate, unknown duration 2. Evidence of cardiomyopathy, it is unclear if it is tachycardia-induced cardiomyopathy 3. History of hypertension 4. Probable obstructive sleep apnea PLAN: 1. JULIETTE guided cardioversion 2. Start Entresto 2426 milligrams twice a day 3. If cardioversion is successful changed to metoprolol succinate 4. If stable probable discharge home tomorrow Objective - Vital Signs Vital signs: Vital Signs Temp 98.0 F 12/21/21 07:52 Pulse 137 H 12/21/21 07:52 Resp 18 12/21/21 07:52 BP 122/102 12/21/21 07:52 Pulse Ox 98 12/21/21 07:52 FiO2 Intake & Output 12/20/21 12/21/21 12/21/21 18:59 06:59 18:59 Intake Total 240 0 Balance 240 0 Intake: IV 0 Oral 240 0 Other: Voiding Method Toilet Toilet # Voids 1 2 2 - Labs CBC & Chem 7: 12/20/21 12:07 12/21/21 09:01 Labs: Abnormal Lab Results - Last 24 Hours (Table) 12/20/21 12/21/21 Range/Units 12:07 09:01 Sodium 136 L (137-145) mmol/L Glucose 105 H 110 H (74-99) mg/dL
--- NOTE | 2021-12-21 10:36 | P.PCN ---
Date of Procedure: 12/21/21 Description of Procedure: Indication: Atrial flutter Procedure Description: After explaining the procedure to the patient, it's risk and complications, blood pressure, heart rate and O2 saturation were monitored. The throat was sprayed with Cetacaine. Patient received sedation per anesthesia department. The probe was introduced into the esophagus without difficulty. Images were obtained. Following that, the probe was removed. There was no immediate complication. Findings: Biatrial enlargement was noted, left atrial appendage was normal. Left ventricle size was normal with severe global hypokinesis, ejection fraction is estimated at 25-30%. The aortic valve appears to be normal. The mitral valve was thickened. Tricuspid valve is normal. Descending thoracic aorta appears to be normal. No pericardial effusion was noted. Contrast bubble study revealed no shunting across the intra-atrial septum Doppler: Pulse wave and color Doppler were obtained, moderate mitral and tricuspid regurgitation with no evidence of pulmonary hypertension. No shunting by color Doppler study Conclusion: 1. Biatrial enlargement 2. Normal appearance of the left atrial appendage 3. Severe global hypokinesis of the left ventricle 4. Moderate mitral and tricuspid regurgitation 5. No shunting across the intra-atrial septum Cardioversion: After obtaining JULIETTE and obtaining sedated state synchronize biphasic cardioversion using 150 J was performed with congregational of sinus mechanism, there is no immediate complications.
--- NOTE | 2021-12-21 11:03 | P.PN ---
Subjective This is a pleasant 56 years old male with past medical history of hypertension. Patient presents because of shortness of breath and dyspnea, patient was getting up in the middle of night feeling short of breath. Especially over the last 2 nights. Also has been complaining of from cough and yellow phlegm but no chest pain. However patient feels generally weak. His PCP is Richard Todd He denies smoking, alcohol occasionally. No illicit drugs. He denies vomiting diarrhea or abdominal pain, no dysuria, no headache or dizziness or weakness or numbness 12/20/2021 Patient's symptoms improved, no chest pain or dyspnea. His generalized weakness is also improving. He denies any GI or urinary complaints, no headache or weakness or numbness or d izziness. His heart rate is been controlled with metoprolol 50 mg twice a day and amiodarone 400 mg twice a day per cardiology team also he was started on liquids 5 mg, discussed with the staff to find the co-pay. His heart rate is now normal. Risk and benefits of anticoagulation explained for the patient extensively and he verbalized understanding and acceptance. Possible discharge in 24 hours if he keeps improving and stable 12/21/2021 Patient today in the morning he was still tachycardic around 124-137, he underwent JULIETTE guided cardioversion and his heart rate improved after that down to 84. JULIETTE findings showing severe global hypokinesia with moderate mitral regurgitation and tricuspid regurgitation. He is currently on metoprolol 50 mg twice a day, amiodarone 400 mg twice a day and he was started on Entresto BMP tomorrow Possible discharge in 24-48 hour was freed by transportation engineer Objective - Vital Signs Vital signs: Vital Signs Temp 98.0 F 12/21/21 07:52 Pulse 80 12/21/21 10:38 Resp 16 12/21/21 10:38 BP 94/67 12/21/21 10:38 Pulse Ox 98 12/21/21 10:38 FiO2 Intake & Output 12/20/21 12/21/21 12/21/21 18:59 06:59 18:59 Intake Total 240 100 Balance 240 100 Weight 124.738 kg Intake: IV 100 Oral 240 0 Other: Voiding Method Toilet Toilet # Voids 1 2 2 - Exam GENERAL: The patient is alert and oriented x3, not in any acute distress. Well developed, well nourished. HEENT: Pupils are round and equally reacting to light. EOMI. No scleral icterus. No conjunctival pallor. Normocephalic, atraumatic. No pharyngeal erythema. No thyromegaly. CARDIOVASCULAR: S1 and S2 present. No murmurs, rubs, or gallops. PULMONARY: Chest is clear to auscultation, no wheezing or crackles. ABDOMEN: Soft, nontender, nondistended, normoactive bowel sounds. No palpable organomegaly. MUSCULOSKELETAL: No joint swelling or deformity. EXTREMITIES: No cyanosis, clubbing, or pedal edema. NEUROLOGICAL: Gross neurological examination did not reveal any focal deficits. SKIN: No rashes. no petechiae. - Labs CBC & Chem 7: 12/20/21 12:07 12/21/21 09:01 Labs: Abnormal Lab Results - Last 24 Hours (Table) 12/20/21 12/21/21 Range/Units 12:07 09:01 Sodium 136 L (137-145) mmol/L Glucose 105 H 110 H (74-99) mg/dL Assessment and Plan Assessment: Atrial flutter with RVR, new onset. Status post cardioversion Hypertension Generalized weakness, improving Plan: This is a pleasant 56 years old male who presents with a atrial fibrillation and RVR Continue with the Radha, find co-pay Continue with Dipti rousseau Cardiology consult is appreciated Labs and medication were reviewed.. Continue same treatment. Continue with symptomatic treatment. Resume home medication. Monitor lytes and vitals. DVT and GI prophylaxis. Further recommendations as per clinical course of the patient DVT prophylaxis: Eliquis, GI Prophylaxis: Pepcid
[2021-12-21] MEDS: SACUBITRIL/VALSARTAN 24 MG-26 MG TABLET PO SCH (20:45)
[2021-12-21] MEDS: METOPROLOL SUCCINATE (ER) 50 MG TAB.ER.24H PO SCH (20:45)
[2021-12-22 04:51] VITALS: PULSE 76; RESP 16; TEMP 97.6
[2021-12-22] MEDS: APIXABAN 5 MG TAB PO SCH (08:13)
[2021-12-22] MEDS: METOPROLOL SUCCINATE (ER) 50 MG TAB.ER.24H PO SCH (08:13)
[2021-12-22] MEDS: SPIRONOLACTONE 25 MG TAB PO SCH (08:13)
[2021-12-22] MEDS: SACUBITRIL/VALSARTAN 24 MG-26 MG TABLET PO SCH (08:14)
[2021-12-22] MEDS: AMIODARONE 200 MG TAB PO SCH (08:14)
[2021-12-22 08:21] VITALS: BP 137/87
[2021-12-22 11:18] LABS: African American GFR (CKD) >90 (>60 ml/min/1.73 sqM); Anion Gap 12 mmol/L; Blood Urea Nitrogen 24 mg/dL (9-20); Carbon Dioxide 23 mmol/L (22-30); Chloride 102 mmol/L (98-107); Glucose 96 mg/dL (74-99); Non-African American GFR(CKD) 84 (>60 ml/min/1.73 sqM); Potassium 4.4 mmol/L (3.5-5.1); Sodium 137 mmol/L (137-145)
--- NOTE | 2021-12-22 11:20 | P.PN ---
Subjective Progress Note Date: 12/22/21 PROGRESS NOTE The patient is a 56-year-old male with a known history of hypertension who presented with progressive dyspnea was noted to be in atrial flutter with rapid ventricular rate. Anticoagulation was initiated. His echocardiogram showed severely impaired systolic function and his ventricular rate remains rapid with 2 to one conduction. He's feeling better overall. He denies any chest discomfort, dizziness or palpitations. He denies any nausea. His echocardiogram showed an ejection fraction of 30- 35% with mild mitral and tricuspid regurgitation December 22: The patient is feeling better today, he continues to be in sinus mechanism. He denies any chest discomfort, dizziness or palpitations. Hemodynamically he stable. He is ambulating without difficulties. He is tolerating his present regimen. Medications: Amiodarone 400 milligrams twice a day, metoprolol 50 mg twice a day,Eliquis 5 mg twice a day, Aldactone 25 mg daily, Entresto 24-26 milligrams by mouth twice a day EXAMINATION: Blood pressure 137/80, heart rate 76 LUNGS: Clear to auscultation HEART: Regular rate and rhythm, S1, S2. No S3. systolic murmur at the base ABDOMEN: Soft, nontender, no organomegaly EXTREMETIES: No edema LAB: Potassium 4.4, BUN 24, creatinine 1.01 IMPRESSION: 1. Atrial flutter with rapid ventricular rate, unknown duration, post cardioversion, back in sinus mechanism 2. Evidence of cardiomyopathy, it is unclear if it is tachycardia-induced cardiomyopathy 3. History of hypertension 4. Probable obstructive sleep apnea PLAN: 1. Continue present therapy 2. Increase physical activity 3. DC home today and follow-up in one week on present medical regimen with close follow-up of his rhythm and systolic function 4. Alcohol cessation Objective - Vital Signs Vital signs: Vital Signs Temp 97.6 F 12/22/21 04:30 Pulse 76 12/22/21 08:00 Resp 16 12/22/21 08:00 BP 137/87 12/22/21 08:00 Pulse Ox 98 12/22/21 08:00 FiO2 Intake & Output 12/21/21 12/22/21 12/22/21 18:59 06:59 18:59 Intake Total 460 300 Balance 460 300 Weight 124.738 kg Intake: IV 100 Oral 360 300 Other: Voiding Method Toilet Toilet # Voids 2 1 - Labs CBC & Chem 7: 12/20/21 12:07 12/21/21 09:01
--- NOTE | 2021-12-22 21:46 | P.DS ---
Providers Date of admission: 12/19/21 15:07 Attending physician: Donald Jorge MD Consults: 12/19/21 15:07 Consult Physician Routine Consulting Provider: Alin Kaur Consult Reason/Comments: New-onset atrial flutter Do you want consulting provider notified?: Yes Primary care physician: [facility] Course: Diagnoses: Atrial flutter with RVR, new onset. Status post cardioversion Cardiomyopathy, suspected secondary to tachycardia by fish conservationist moderate lateral regurgitation and tricuspid regurgitation Hypertension Generalized weakness, improed Hospital course: This is a pleasant 56 years old male with past medical history of hypertension. Patient presents because of shortness of breath and dyspnea. Patient evaluated by fish conservationist and underwent cardio version with fish conservationist and he returned to sinus mechanism,, JULIETTE showed severe global hypokinesia with moderate lateral regurgitation and tricuspid regurgitation. Patient started on anticoagulation and he returned to sinus rhythm, medication were adjusted by fish conservationist on discharge and they sent a prescription to the pharmacy including entrestro, metoprolol, amiodarone and Eliquis, with bed side nurse Giselle with . the pharmacist there is no co-pay for his Eliquis, patient informed about the risks and benefits of anticoagulation in details and he verbalized understanding and acceptance to continue with it. Today he denies any chest pain or dyspnea, no abdominal complaint, no vomiting or diarrhea or dysuria. No fever. patient was cleared for discharge by fish conservationist Problems and management plan were discussed with the patient and he verbalized understanding and acceptance Patient was found stable and can be discharged home however he needs follow-up as an outpatient. Patient was instructed to follow up with PCP Dr. mack within one week and patient agrees Patient was instructed to follow up with fish conservationist Dr. Morris and an week and he verbalized and agreed to call and make appointment as today is weekend Physical exam Gen: patient is a AAOx3, no distress CVS: S1-S2, RRR, no murmur Lungs: B/L CTA, no wheezing Abdomen: soft, no distention, no tenderness, positive bowel sounds Extremity: no leg edema or induration Time spent more than 35 minutes Patient Condition at Discharge: Stable Plan - Discharge Summary Discharge Rx Participant: Yes New Discharge Prescriptions: New Apixaban [Eliquis] 5 mg PO BID #60 tab Amiodarone [Cordarone] 400 mg PO BID #180 tab Spironolactone [Aldactone] 25 mg PO DAILY #90 tab Sacubitril/Valsartan [Entresto 24 mg-26 mg Tablet] 1 each PO BID #180 tab Metoprolol Succinate (ER) [Toprol XL] 50 mg PO BID #180 tab Discontinued lisinopriL [Zestril] 2.5 mg PO DAILY tadalafiL 5 mg PO DAILY PRN PRN Reason: E.D Discharge Medication List Apixaban [Eliquis] 5 mg PO BID #60 tab 12/20/21 [Rx] Amiodarone [Cordarone] 400 mg PO BID #180 tab 12/22/21 [Rx] Metoprolol Succinate (ER) [Toprol XL] 50 mg PO BID #180 tab 12/22/21 [Rx] Sacubitril/Valsartan [Entresto 24 mg-26 mg Tablet] 1 each PO BID #180 tab 12/22/21 [Rx] Spironolactone [Aldactone] 25 mg PO DAILY #90 tab 12/22/21 [Rx] Follow up Appointment(s)/Referral(s): Keila Morris MD [STAFF PHYSICIAN] - 1 Week Cecily Shelton MD [Primary Care Provider] - 1-2 days Patient Instructions/Handouts: A-fib (Atrial Fibrillation) (DC), A-fib (Atrial Fibrillation) (GEN) Activity/Diet/Wound Care/Special Instructions: heart healthy diet activity is restricted till you see your doctor Discharge Disposition: HOME SELF-CARE
== END 2021-12-22 13:42 | disposition home or self-care (01) | DRG 310 ==
LOC: EC 12:33 → 3SCARD 15:07
PROVIDERS: ADMIT Internal Medicine; ATTEND Internal Medicine
PROC: B24BZZ4 Ultrasonography of Heart with Aorta, Transesophageal (ICD-10-PCS; principal; 2021-12-21 12:05)
PROC: 5A2204Z Restoration of Cardiac Rhythm, Single (ICD-10-PCS; principal; 2021-12-21 12:05)
DX: I48.3 Typical atrial flutter (principal); I42.9 Cardiomyopathy, unspecified; T46.4X5A Adverse effect of angiotensin-converting-enzyme inhibitors, initial encounter; R05.8 Other specified cough; G47.33 Obstructive sleep apnea (adult) (pediatric); I08.1 Rheumatic disorders of both mitral and tricuspid valves; I10 Essential (primary) hypertension; Z79.899 Other long term (current) drug therapy; Z87.891 Personal history of nicotine dependence; Z20.822 Contact with and (suspected) exposure to COVID-19; Z28.21 Immunization not carried out because of patient refusal; R00.0 Tachycardia, unspecified; Z71.89 Other specified counseling
CPT/HCPCS: 36415; 71046; 80048; 80053; 83735; 84443; 84484; 85025; 85610; 85730; 87502; 87635; 92960; 93005; 93306; 93312; 93320; 93325; 96365; 96366; 96375; 96376; 99291

== ENCOUNTER 2022-03-26 09:03 | Day surgery (SDC) | payer BC ==
[2022-03-22 14:33] VITALS: BMI 34.3
[~2022-03-26 09:03] MED LIST changes: +SODIUM CHLORIDE 0.9% 1,000 ML IV SCH
[2022-03-26] MEDS ORDERED: SODIUM CHLORIDE 0.9% 500 ML 500 ML IV ONE (09:17)
[2022-03-26 09:58] LABS: Potassium 4.6 mmol/L (3.5-5.1)
[2022-03-26 10:21] VITALS: TEMP 97
[2022-03-26] MEDS ORDERED: BENZOCAINE SPRAY 1 CAN TOPICAL ONE (10:23)
[2022-03-26] MEDS ORDERED: PROPOFOL 10 MG/ML 20 ML VIAL IV ONE (10:25)
[2022-03-26] MEDS ORDERED: LIDOCAINE 2% INJ 20 MG/ML (2 ML VIAL) ONE (10:25)
[2022-03-26] MEDS ORDERED: SODIUM CHLORIDE 0.9% 1,000 ML IV SCH (11:00)
--- NOTE | 2022-03-26 11:00 | P.PCN ---
Date of Procedure: 03/26/22 Description of Procedure: Indication: Atrial flutter Procedure Description: After explaining the procedure to the patient, it's risk and complications, blood pressure, heart rate and O2 saturation were monitored. The throat was sprayed with Cetacaine. Patient received sedation per anesthesia department. The probe was introduced into the esophagus without difficulty. Images were obtained. Following that, the probe was removed. There was no immediate complication. Findings: Left atrial size is mildly dilated, left atrial appendage is normal. Left ventricle size is mildly impaired with global hypokinesis, ejection fraction 45- 50%, mild thickening of the mitral valve leaflets was noted, aortic valve is normal. Tricuspid valve is normal. Pulmonic valve is normal. Descending thoracic aorta appears to be normal. No pericardial effusion was noted. Contrast bubble study revealed no shunting across the intra-atrial septum. Doppler: Pulse wave and color Doppler were obtained, an revealed mild to moderate mitral with moderate tricuspid regurgitation. There was no shunting across the intra-atrial septum. Conclusion: 1. Normal appearance of the left atrial appendage 2. Mildly impaired left ventricle systolic function 3. Mild to moderate mitral and moderate tricuspid regurgitation 4. No shunting across the intra-atrial septum 5. Normal appearance of the descending thoracic aorta Cardioversion: After obtaining a JULIETTE and sedated state synchronized biphasic cardioversion using 200 J was performed with presybeterian of sinus mechanism, there was no immediate complications.
[2022-03-26] MEDS ORDERED: SODIUM CHLORIDE 0.9% 1,000 ML IV ONE (11:16)
[2022-03-26 15:44] VITALS: BP 103/68; PULSE 62; RESP 16
[2022-03-26] MEDS ORDERED: APIXABAN 5 MG TAB PO SCH (21:00)
[2022-03-26] MEDS ORDERED: SACUBITRIL/VALSARTAN 24 MG-26 MG TABLET PO SCH (21:00)
[2022-03-26] MEDS ORDERED: METOPROLOL SUCCINATE (ER) 50 MG TAB.ER.24H PO SCH (21:00)
[2022-03-27] MEDS ORDERED: SPIRONOLACTONE 25 MG TAB PO SCH (09:00)
[2022-03-27] MEDS ORDERED: AMIODARONE 200 MG TAB PO SCH (09:00)
== END 2022-03-26 13:30 | disposition home or self-care (01) ==
LOC: CATHCVL 09:03
PROVIDERS: ATTEND Internal Medicine Interventional Cardiology
DX: I48.92 Unspecified atrial flutter (principal); I10 Essential (primary) hypertension; I25.5 Ischemic cardiomyopathy
CPT/HCPCS: 93312; 93320; 93325; 92960; 80048; J2704; J2001